=== PATIENT | male | born 1995 | race Two or more races ===

== ENCOUNTER 2016-11-03 14:19 | Emergency (ER) | payer SELFPAY ==
--- NOTE | 2016-11-03 14:24 | UC ---
Ear Complaint HPI - HPI Summary HPI Summary: 21 year old male presents with complains of rash on his stomach and groin. - History of Current Complaint Stated Complaint: RASH Time Seen by Provider: 11/03/16 14:23 - Allergies/Home Medications Allergies/Adverse Reactions: Allergies Allergy/AdvReac Type Severity Reaction Status Date / Time Clindamycin Allergy Intermediate Hives Verified 11/03/16 14:42 Review of Systems Constitutional: Negative Skin: Rash Eyes: Negative ENT: Negative Respiratory: Negative Cardiovascular: Negative Gastrointestinal: Negative Genitourinary: Negative Motor: Negative Neurovascular: Negative Musculoskeletal: Negative Neurological: Negative Psychological: Negative All Other Systems Reviewed And Are Negative: Yes Physical Exam Triage Information Reviewed: Yes Eye Exam: Normal ENT Exam: Normal Dental Exam: Normal Neck exam: Normal Neck: Positive: 1 Respiratory Exam: Normal Cardiovascular Exam: Normal Abdominal Exam: Normal Musculoskeletal Exam: Normal Neurological Exam: Normal Psychological Exam: Normal Skin: Positive: rashes Ear Complaint Course/Dx - Differential Dx/Diagnosis Provider Diagnoses: scabies. rash Discharge - Discharge Plan Condition: Stable Disposition: HOME Prescriptions: Permethrin [Elimite] 5 % EX BEDTIME #2 tube Patient Education Materials: Acute Rash (ED) Referrals: Patricia Garcia PA [Primary Care Provider] - If Needed
[2016-11-03 14:41] VITALS: BP 110/55
== END 2016-11-03 14:54 | disposition home or self-care (01) ==
LOC: UCCORT 14:19
DX: B86 Scabies (principal); R21 Rash and other nonspecific skin eruption; Z88.1 Allergy status to other antibiotic agents
CPT/HCPCS: 99212; G0463

== ENCOUNTER 2017-03-07 14:13 | Emergency (ER) | payer BC ==
--- NOTE | 2017-03-07 15:18 | UC ---
Throat Pain/Nasal Esdras HPI - HPI Summary HPI Summary: 21 YEAR OLD MALE PRESENTS WITH COMPLAINS OF LEFT SIDED SORE THROAT. - History of Current Complaint Stated Complaint: FEVER 101.5 SORE THROAT Time Seen by Provider: 03/07/17 15:17 Hx Obtained From: Patient Onset/Duration: Sudden Onset Severity: Moderate Pain Scale Used: 0-10 Numeric - 8 - Allergies/Home Medications Allergies/Adverse Reactions: Allergies Allergy/AdvReac Type Severity Reaction Status Date / Time Clindamycin Allergy Intermediate Hives Verified 03/07/17 15:26 Home Medications: Home Medications Acyclovir* [Zovirax 200 MG CAP*] 100 mg PO DAILY 03/07/17 [History Confirmed ] PMH/Surg Hx/FS Hx/Imm Hx Previously Healthy: Yes - Surgical History Surgical History: Yes Surgery Procedure, Year, and Place: ACL - Social History Alcohol Use: Weekly Alcohol Amount: once a week Substance Use Type: None Smoking Status (MU): Never Smoked Tobacco Review of Systems Constitutional: Negative Skin: Negative Eyes: Negative ENT: Sore Throat - LEFT SIDED Respiratory: Negative Cardiovascular: Negative Gastrointestinal: Negative Genitourinary: Negative Motor: Negative Neurovascular: Negative Musculoskeletal: Negative Neurological: Negative Psychological: Negative All Other Systems Reviewed And Are Negative: Yes Physical Exam Triage Information Reviewed: Yes Vital Signs Reviewed: Yes Eye Exam: Normal ENT: Positive: Pharyngeal erythema, Tonsillar swelling, Tonsillar exudate Dental Exam: Normal Neck exam: Normal Neck: Positive: 1 Respiratory Exam: Normal Cardiovascular Exam: Normal Abdominal Exam: Normal Musculoskeletal Exam: Normal Neurological Exam: Normal Psychological Exam: Normal Skin Exam: Normal Throat Pain/Nasal Course/Dx - Course Course Of Treatment: PATIENT TOLD TO GO TO ER IF SYMTOMS DO NOT RESOLVE FOR POSSIBLE ABSCESS - Differential Dx/Diagnosis Provider Diagnoses: LEFT TONSILLAR SWELLING. PHARYNGITIS Discharge - Discharge Plan Condition: Stable Disposition: HOME Prescriptions: Amoxicillin/Clavulanate TAB* [Augmentin TAB 875*] 875 mg PO BID #20 tab Magic M W2 Oneil/Maal/Nyst/Lido* 5 ml SWISH SPIT QID PRN #120 ml PRN Reason: Pain Methylprednisolone [Medrol Dosepak 4 MG*] 4 mg PO .SEE CYN INSTRUCTION #21 tab Patient Education Materials: Pharyngitis (ED), Tonsillitis (ED) Referrals: Non Staff,Doctor [Primary Care Provider] -
[2017-03-07 15:25] VITALS: BP 111/71
== END 2017-03-07 16:07 | disposition home or self-care (01) ==
LOC: UCCORT 14:13
DX: J02.9 Acute pharyngitis, unspecified (principal); J35.1 Hypertrophy of tonsils; Z88.3 Allergy status to other anti-infective agents
CPT/HCPCS: 87070; 87651; 99212; G0463